=== PATIENT | male | born 2000 | race Caucasian/White ===

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

== ENCOUNTER 2023-09-02 21:40 | Emergency (ER) | payer MEDICAID, SELFPAY ==
[2023-09-02 21:41] VITALS: BP 128/72; PULSE 96; RESP 19; TEMP 36.2; O2SAT 99; BMI 18.9
--- NOTE | 2023-09-02 22:16 | EX.ED.DYSGE1 ---
HPI History of Present Illness Chief Complaint: Other, Pain/Inj Informant: patient and spouse/S.O. Narrative Narrative: Presents with diffuse myalgias. Patient states when he went to bed he feels just fine. He took a nap. He woke up. When he woke up he felt muscle aches and like I had a concussion. When asked what this means he states that he just felt a little bit dizzy and just did not feel well. He had a hot feeling. He was not actually having headache. Most of what he has is myalgias. He states his energy just seems low also. He does not know if he had a fever. His girlfriend said he felt hot. There is been no nausea vomiting sore throat congestion cough or abdominal pain. No urinary symptoms. No rash. 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 He was exposed to a family member's significant others who he just found out had COVID. PFSH PFS Home Medications NK 09/02/23 [History Last Taken Unknown] Allergy/AdvReac Type Severity Reaction Status Date / Time No Known Allergies Allergy Verified 09/02/23 21:41 Social History Smoking Status: Never smoker ROS ROS ED Constitutional Constitutional ED: Reports subjective Eyes Eyes: Denies blurry vision or diplopia ENT ENT ED: Denies ear pain, rhinorrhea or sore throat Cardiovascular Cardiovascular: Denies chest pain or palpitations Respiratory/Chest Respiratory/Chest: Denies cough or dyspnea Gastrointestinal Gastrointestinal: Denies abdominal pain, diarrhea, nausea or vomiting Genitourinary Genitourinary ED: Denies dysuria Musculoskeletal Musculoskeletal: Reports myalgias Integumentary Denies rash Neurologic Neurologic: Denies headache(s), paresthesias or weakness Endocrine Endocrinology: Denies polydipsia or polyuria Hematologic/Lymphatic Hematologic/Lymphatic: Denies lymphadenopathy Allergic/Immunologic Allergic/Immunologic ED: Denies urticaria EXAM Physical Exam Narrative Exam Narrative: CONSTITUTIONAL: Patient is nontoxic in appearance. The patient looks comfortable. Work of breathing looks normal. HEENT: No notable trauma. Mucous membranes moist. No sinus tenderness. No congestion or discharge. Voice is normal. No dental tenderness. EYES: No conjunctival injection. No proptosis. Pallor. NECK:No JVD. No stridor. CARDIOVASCULAR: Regular rate. Regular rhythm. No notable murmur. No JVD. RESPIRATORY: No respiratory distress. Breathing is unlabored. No wheezes. No rhonchi. No rales. No pain with a deep breath. No chest wall tenderness. GASTROINTESTINAL: Not distended. Bowel sounds are normal. No tenderness. GENITOURINARY: No tenderness over the bladder. No CVA tenderness. Pressure vesicles. MUSCULOSKELETAL: Atraumatic. No peripheral edema. No cord. NEUROLOGICAL: Patient is alert and appropriate. No focal deficit noted. SKIN: No noted rashes. No diaphoresis. PSYCHIATRIC: Patient is calm. Mood is appropriate. Const Vital Signs: 09/02/23 21:41 09/02/23 22:22 Temperature 97.1 F L Temperature Source Temporal Pulse Rate 96 Respiratory Rate 19 H Respiratory Effort Normal Non-Labored Respiratory Pattern Normal Blood Pressure 128/72 H Blood Pressure Mean 90 Pulse Ox 99 MDM MDM MDM Narrative Medical decision making narrative: Sounds like he has a viral syndrome. He woke up with myalgias and just not feeling well. No documented fever. No specific symptoms such as sore throat nausea vomiting abdominal pain cough. I think he can be treated symptomatically. I do not think this needs an extensive workup. With no pulmonary symptom, finding or hypoxia I do not think x-ray is needed. Since he is a young healthy male who felt well hours ago I do not think blood work is going to give us the answer. No indication that he has diabetes. No polyuria or polydipsia. We will send off COVID and flu. COVID and influenza are both negative. Patient still has what is most likely a viral type illness. I think Tylenol rest and follow-up is appropriate. I do not see a need for antibiotics. Discharge Plan Triage Chief Complaint: Other, Pain/Inj ED Provider: Beni Manuel Dx/Rx/DC Orders Clinical Impression: Myalgia, Acute viral syndrome Instructions: ED Viral Syndrome (Adult) Prescriptions: No Action NK Primary Care Provider: Care Physician,No Primary Referrals: Neda Barrios DO [Med Staff - Special Education [employer] Teacher] - 3-5 Days if not improving Care Physician,No Primary [Primary Care Provider] - Disposition Disposition: Home, Self Care
== END 2023-09-02 23:12 | disposition home or self-care (01) ==
PROVIDERS: Emergency Provider Emergency Medicine; Visit Provider Emergency Medicine
DX: B34.9 Viral infection, unspecified (principal)
CPT/HCPCS: 87428; 99282